=== PATIENT | male | born 2000 | race African-American/Black ===

== ENCOUNTER 2018-05-21 19:39 | Emergency (ER) | payer BC, OTHER ==
[~2018-05-21] VITALS: Ht 193 cm; Wt 81.7 kg
[~2018-05-21 19:39] MED LIST: NOHOMEMEDICATIONS
[2018-05-21 20:00] LABS: URINE BILIRUBIN NEGATIVE (Negative); URINE BLOOD NEGATIVE (Negative); URINE CLARITY CLEAR; URINE COLOR YELLOW; URINE GLUCOSE-RANDOM* NEGATIVE (Negative); URINE KETONES NEGATIVE (Negative); URINE LEUKOCYTES-REFLEX NEGATIVE (Negative); URINE NITRITE-REFLEX NEGATIVE (Negative); URINE PROTEIN (DIPSTICK) NEGATIVE (Negative); URINE SPECIFIC GRAVITY <= 1.005 (1.005-1.035); URINE UROBILINOGEN 0.2 E.U./dl (0.2-1.0)
[2018-05-21 20:23] LABS: CALCIUM 9.5 mg/dL (8.5-10.1); CREATININE 0.9 mg/dL (0.7-1.3); POTASSIUM 3.8 mmol/L (3.5-5.1)
[2018-05-21 20:25] LABS: ABSOLUTE NEUTROPHILS 4.4 thou/uL (1.4-8.2); BASOPHILS 0.8 % (0.0-2.0); EOSINOPHILS 3.5 % (0.0-3.0); HEMATOCRIT 40.3 % (42.0-52.0); HEMOGLOBIN 14.7 gm/dL (14.0-18.0); MCH 30.7 pg (26.0-34.0); MCHC 36.4 g/dL (28.0-37.0); MCV 84.4 fL (80.0-100.0); MONOCYTES 6.7 % (1.0-8.0); PLATELET COUNT 238 thou/uL (150-400); RBC 4.77 mil/uL (4.50-6.00); RDW 12.9 % (10.5-14.5); WBC 9.2 thou/uL (4.0-11.0)
[2018-05-21 20:31] LABS: TOTAL BILIRUBIN 0.7 mg/dL (<0.1-1.0); TOTAL PROTEIN 8.5 g/dL (6.4-8.2)
[2018-05-21] MEDS ORDERED: MIRALAX17 GM PO (22:21)
[2018-05-21 22:28] VITALS: BP 112/75
== END 2018-05-21 22:28 | disposition home or self-care (01) ==
LOC: ER 19:39
PROVIDERS: Physician Assistant
DX: I86.1 Scrotal varices (principal); N50.812 Left testicular pain; K59.00 Constipation, unspecified

== ENCOUNTER 2019-12-03 08:15 | Emergency (ER) | payer BC, OTHER ==
[~2019-12-03] VITALS: Ht 195.6 cm; Wt 79.4 kg
[~2019-12-03 08:15] MED LIST changes: +MIRALAX17 GM PO
[2019-12-03 11:15] VITALS: BP 90/62
== END 2019-12-03 11:15 | disposition home or self-care (01) ==
LOC: ER 08:15
DX: J02.9 Acute pharyngitis, unspecified (principal); Z20.828 Contact with and (suspected) exposure to other viral communicable diseases; R53.83 Other fatigue; Z79.899 Other long term (current) drug therapy

== ENCOUNTER 2020-01-26 11:57 | Emergency (ER) | payer OTHER ==
[~2020-01-26] VITALS: Ht 193 cm; Wt 79.4 kg
[2020-01-26 11:58] VITALS: BP 111/57
== END 2020-01-26 13:14 | disposition home or self-care (01) ==
LOC: ER 11:57
DX: M79.671 Pain in right foot (principal); M25.571 Pain in right ankle and joints of right foot; X58.XXXA Exposure to other specified factors, initial encounter; Y93.89 Activity, other specified; Y92.89 Other specified places as the place of occurrence of the external cause; Y99.8 Other external cause status

== ENCOUNTER 2020-09-07 09:28 | Emergency (ER) | payer OTHER ==
[~2020-09-07] VITALS: Ht 195.6 cm; Wt 79.4 kg
[2020-09-07 18:27] VITALS: BP 119/70
== END 2020-09-07 18:29 | disposition short-term general hospital (02) ==
LOC: ER 09:28
DX: S02.82XA Fracture of other specified skull and facial bones, left side, initial encounter for closed fracture (principal); S02.2XXA Fracture of nasal bones, initial encounter for closed fracture; R55 Syncope and collapse; K08.89 Other specified disorders of teeth and supporting structures; F17.210 Nicotine dependence, cigarettes, uncomplicated; Y04.2XXA Assault by strike against or bumped into by another person, initial encounter; Y93.89 Activity, other specified; Y92.098 Other place in other non-institutional residence as the place of occurrence of the external cause; Y99.8 Other external cause status

== ENCOUNTER 2020-10-31 13:00 | Emergency (ER) | payer OTHER ==
[~2020-10-31] VITALS: Ht 195.6 cm; Wt 76.7 kg
[2020-10-31 13:01] VITALS: BP 121/70
[2020-10-31] MEDS ORDERED: AMOXICILLIN500 M1 PO (13:13)
== END 2020-10-31 13:18 | disposition home or self-care (01) ==
LOC: ER 13:00
DX: J02.9 Acute pharyngitis, unspecified (principal); R21 Rash and other nonspecific skin eruption

== ENCOUNTER 2020-12-09 10:19 | Emergency (ER) | payer OTHER ==
[~2020-12-09] VITALS: Ht 195.6 cm; Wt 77.1 kg
[~2020-12-09 10:19] MED LIST changes: +AMOXICILLIN500 M1 PO
[2020-12-09 10:20] VITALS: BP 121/71
[2020-12-09] MEDS ORDERED: BACTRIM DS TAB1 EAC1 PO (11:37)
== END 2020-12-09 11:38 | disposition home or self-care (01) ==
LOC: ER 10:19
DX: L03.115 Cellulitis of right lower limb (principal); Z21 Asymptomatic human immunodeficiency virus [HIV] infection status